=== PATIENT | female | born 1995 | race Caucasian/White ===

== ENCOUNTER 2017-09-16 16:00 | Observation (INO) | payer MEDICAID ==
--- NOTE | 2017-09-16 19:51 | PDGENHP ---
History and Physical History and Physical: CARE: [facility] HPI: Patient is a [id number] with IUP@ 39-3wks (6) that presents to L&D with complaints of decreased movement x 1 day. She states she had some movement yesterday but denies any regular movements today, states she did feel movement x1 this morning. She denies any contractions, LOF, VB. She EDC:09/20/17 which is based on Ultrasound at 6 weeks. Her is complicated by: h/o tobacco use (none now), h/o HSV 1, h/o anxiety/bulemia, h/o pyelo x2 (none in ), BMI 15 Review of Systems: Constitutional: Denies any fever, chills, or fatigue HEENT: denies any visual changes, difficulty swallowing, hearing loss Cardiovascular: Denies any chest pain, palpitations, leg swelling Respiratory: denies any cough, wheezing, or shortness of breathe GI: Denies any nausea, vomiting, diarrhea, constipation : denies any dysuria, urgency, frequency, vaginal bleeding Musculoskeletal: denies any muscle or bone pain Skin: denies any rashes Neuro: denies any headache, seizures, lightheadedness, dizziness, or loss of consciousness Psychiatric: denies any depression, anxiety, or SI/HI thoughts HISTORY: Previous OB history: G1 Past medical history: h/o bulemia/anxiety Past surgical history: esophageal polyps removed x2, oral surgery Medications: PNV Allergies (list reaction): NKDA LABS: Rh: A pos ABS: Neg Rubella: Immune HbsAg: NR HIV: NR VDRL: NR 1hr: 100 GC: Neg Chlamydia: Neg Pap: Normal GBS: negative BMI: (prepreg) 15 PHYSICAL EXAM: Constitutional: WN, A&Ox3 HEENT: normocephalic atraumatic, supple Heart: RRR, no murmur Chest: CTA-B Abdomen: Soft, nontender, gravid SVE: deferred Extremities: no edema, negative homans sign Neuro: grossly normal Psych: normal affect assessment: Reassuring FHTs, cat 1 Contractions: toco q none BSUS done: HOLLEY 7cm Assessment: 1) [id number] with IUP@ 39-3wks (6) 2) Decreased FM- now resolved, baby active currently 3) GBS negative 4) Cat 1 FHR tracing 5) HOLLEY 7cm 6) no evidence of labor Plan: 1) d/c home 2) PO hydrate 3) FKC and labor prec discussed 4) f/u in office Monday 09/18 for visit/HOLLEY
== END 2017-09-16 17:45 | disposition home or self-care (01) ==
LOC: FLD 16:00
PROVIDERS: ADMIT Advanced Practice Midwife; ATTEND Advanced Practice Midwife
DX: O36.8130 Decreased fetal movements, third trimester, not applicable or unspecified (principal); Z3A.39 39 weeks gestation of pregnancy
CPT/HCPCS: G0378

== ENCOUNTER 2017-09-23 14:00 | Inpatient (IN) | payer MEDICAID ==
[2017-09-23] MEDS ORDERED: LR 1,000 ML IV PRN (14:42)
[2017-09-23] MEDS ORDERED: EPSOM SALT 454 GM TP PRN (14:42)
[2017-09-23] MEDS ORDERED: TERBUTALINE SULFATE 1 MG/ML VIAL IV PRN (14:42)
[2017-09-23] MEDS ORDERED: LIDOCAINE 1% 300 MG/30 ML SDV SC PRN (14:42)
[2017-09-23] MEDS ORDERED: MISOPROSTOL 200 MCG TAB PO PRN (14:42)
[2017-09-23] MEDS ORDERED: OLIVE OIL 118 ML BTL MISC PRN (14:42)
[2017-09-23] MEDS ORDERED: AMMONIA AROMATIC 1 EACH AMP IH PRN (14:42)
--- NOTE | 2017-09-23 14:51 | PDGENHP ---
History and Physical History and Physical: CARE: [facility] HPI: Patient is a 22 yo G 1 P 0 at 40.3 weeks ega who presents to L&D with painful contractions that started early this AM. They are currently 4 minutes apart and she is breathing through them. She denies LOF and VB. Baby has been active. EDC: 09/20/2017 which is based on LMP: 12/13/16 which is known and consistent with Ultrasound at 6 weeks. Her is complicated by: - h/o bipolar disorder/bulimia/anxiety - stable and not currently treated, was treated during teen years [age]. (had 50 pound weight gain with ) - former smoker - 1 PPD - stopped with pos test - h/o pyelo X2 that required hospitalization Review of Systems: Constitutional: Denies any fever, chills, or fatigue HEENT: denies any visual changes, difficulty swallowing, hearing loss Cardiovascular: Denies any chest pain, palpitations, leg swelling Respiratory: denies any cough, wheezing, or shortness of breathe GI: Denies any nausea, vomiting, diarrhea, constipation : denies any dysuria, urgency, frequency, vaginal bleeding Musculoskeletal: denies any muscle or bone pain Skin: denies any rashes Neuro: denies any headache, seizures, lightheadedness, dizziness, or loss of consciousness Psychiatric: denies any depression, anxiety, or SI/HI thoughts HISTORY: Previous OB history: none Past medical history: h/o hsv 1(cold sores), h/o bipolar/anxiety/bulimia - currently stable (was treated ages [age]), h/o pyelo X2 (was hospitalized) Past surgical history: h/o esophageal polyps secondary to bulimia - Medications: PNV Allergies (list reaction): NKDA LABS: Rh: A pos ABS: Neg Rubella: Immune HbsAg: NR HIV: NR VDRL: NR 1hr: 100 GC: Neg Chlamydia: Neg Pap: N/A GBS: neg PHYSICAL EXAM: Constitutional: WN, A&Ox3 HEENT: normocephalic atraumatic, supple Heart: RRR, no murmur Chest: CTA-B Abdomen: Soft, nontender, gravid SVE: 5/90/0 Extremities: trace edema, negative rodrigue's sign Neuro: grossly normal Psych: normal affect assessment: Reassuring FHTs, baseline 130s +accels, no decels, moderate variability Contractions: toco q 3-4 Assessment: 1) 22 yo G 1 P 0 with IUP@ 40.3 weeks EGA 2) spontaneous labor 3) GBS neg 4) Cat 1 FHR tracing Plan: 1) Admit to L&D 2) Intermittent monitoring per protocol after reactive NST 3) Diet as tolerated 4) Pain management PRN as patient desires - is planning unmediated at this time. 5) Anticipate
--- NOTE | 2017-09-23 15:41 | PDMN ---
Medical Necessity Medical necessity: C/M review: est. > 2 MN LOS for 40.3 weeks intrauterine with spontaneous labor for expectant management of labor and delivery , anticipated per H/P.
[2017-09-23 15:51] LABS: PLATELET COUNT 212 10^3/uL (150-400)
[2017-09-23] MEDS ORDERED: LIDOCAINE 1% 300 MG/30 ML SDV ONE (16:10)
[2017-09-23] MEDS ORDERED: TERBUTALINE SULFATE 1 MG/ML VIAL ONE (16:11)
[2017-09-23] MEDS ORDERED: MISOPROSTOL 200 MCG TAB ONE (16:11)
[2017-09-23] MEDS ORDERED: AMMONIA AROMATIC 1 EACH AMP IH ONE (16:11)
[2017-09-23] MEDS ORDERED: OXYTOCIN 10 UNIT/ML VIAL ONE (16:11)
[2017-09-23] MEDS ORDERED: OLIVE OIL 118 ML BTL ONE (16:11)
[2017-09-23] MEDS ORDERED: OXYTOCIN/NORMAL SALINE 20 UNIT/1,000 ML BAG IV ONE (16:12)
[2017-09-23] MEDS ORDERED: fentaNYL 200 MCG, BUPIVACAINE 0.5% 20 ML in NS 100 ML EP SCH (20:00)
[2017-09-23] MEDS ORDERED: ONDANSETRON 4 MG/2 ML VIAL IVP PRN (20:33)
[2017-09-23] MEDS ORDERED: PHENYLEPHRINE HCL 100 MCG/ML SYR IVP PRN (20:33)
[2017-09-23] MEDS ORDERED: NALOXONE HCL 0.4 MG/ML INJ IVP PRN (20:33)
--- NOTE | 2017-09-23 20:37 | PREANESOB ---
Obstetric Pre-Anesthesia Info - General Info NPO Start Time: 15:00 : 1 Para: 0 SALAZAR: 09/20/17 Gestational Age: 40 week(s) and 3 day(s) - Info Status: Full Term Monitors: External FHR Pattern: Reassuring - Labor Status Cervical Dilation per last OB SVE: 8 PIH: No Indications for Labor Analgesia: Pain Control Anesthesia ROS: anxiety h/o eating disorders R hip pain during Allergies/Adverse Reactions: Allergy/AdvReac Type Severity Reaction Status Date / Time No Known Allergies Allergy Verified 04/14/13 13:24 Home Medications: Medication Instructions Recorded Ondansetron Odt [Zofran Odt] 4 mg PO Q4PRN PRN #8 tab 08/08/15 Visit Medications: Generic Name Dose Route Start Last Admin Trade Name Freq PRN Reason Stop Dose Admin Ammonia (Aromatic Spirit) 1 each 09/23/17 14:42 Ammonia Aromatic IH 10/03/17 14:41 ONCE PRN Fainting Lactated Ringer's 1,000 mls @ 0 mls/hr 09/23/17 14:42 Lr IV 09/24/17 14:41 PRN PRN SEE PROTOCOL CONDITIONS Protocol Per Protocol Fentanyl 200 mcg/ Bupivacaine 100 mls @ 0 mls/hr 09/23/17 20:00 HCl 20 ml/ Sodium Chloride EP 10/03/17 19:59 CONT VASU Protocol As Directed Ibuprofen 600 mg 09/23/17 14:42 Motrin PO 03/22/18 14:41 Q6HRS PRN post , inflammation Lidocaine HCl 300 mg 09/23/17 14:42 Lidocaine Hcl 1% SC 03/22/18 14:41 ONCE PRN episiotomy Magnesium Sulfate 454 gm 09/23/17 14:42 Epsom Salt TP 03/22/18 14:41 Q1H PRN perineal discomfort Misoprostol 800 - 1,000 mcg 09/23/17 14:42 Cytotec PO 03/22/18 14:41 ONCE PRN Vaginal Atony/Bleeding [place] Oil 118 ml 09/23/17 14:42 Sweet Oil MISC 03/22/18 14:41 ONCE PRN perineal massage Terbutaline Sulfate 0.25 mg 09/23/17 14:42 Brethine IV 03/22/18 14:41 ONCE PRN Tachysystole Discontinued Medications Generic Name Dose Route Start Last Admin Trade Name Yaron PRN Reason Stop Dose Admin Ammonia (Aromatic Spirit) Confirm 09/23/17 16:11 Ammonia Aromatic Administered 09/23/17 16:12 Dose 1 each IH .STK-MED ONE Lidocaine HCl Confirm 09/23/17 16:10 Lidocaine Hcl 1% Administered 09/23/17 16:11 Dose 300 mg .ROUTE .STK-MED ONE Misoprostol Confirm 09/23/17 16:11 Cytotec Administered 09/23/17 16:12 Dose 1,000 mcg .ROUTE .STK-MED ONE [place] Oil Confirm 09/23/17 16:11 Sweet Oil Administered 09/23/17 16:12 Dose 118 ml .ROUTE .STK-MED ONE Oxytocin Confirm 09/23/17 16:11 Pitocin Administered 09/23/17 16:12 Dose 40 unit .ROUTE .STK-MED ONE Oxytocin/Sodium Chloride Confirm 09/23/17 16:12 Pitocin 20 Units/Ns (Premix) Administered 09/23/17 16:13 Dose 20 unit IV .STK-MED ONE Terbutaline Sulfate Confirm 09/23/17 16:11 Brethine Administered 09/23/17 16:12 Dose 1 mg .ROUTE .STK-MED ONE - Anesthesia History Response to Local Anesthetics: Normal Anesthesia & Operative History: No Prior Problems Family Anesthesia History: Negative - Vital Signs Latest Vital Signs (Nursing): See RN flowsheet for vital signs Height/Weight (Nursing): Height 175.26 cm Weight 74.843 kg - Focused Exam Neck exam: FROM Mallampati Score: Class 2 Pulmonary: clear to auscultation Cardiovascular: regular rate and rhythym Labs: 09/23/17 15:25 Patient ABO/Rh A POSITIVE 09/23/17 15:25 - Plan Consent Signed and on Chart: Yes Urgent/Emergent Case: Angie rodriguez completed preop but documented later for safe timely pt care
--- NOTE | 2017-09-23 20:53 | OBPROG ---
Labor Progress Note Assessment/Plan: Assessment: 22 y/o at 40 3/7 wks in active labor Plan: s/p epidural, pt is comfortable AROM - mod amount, light meconium noted FHTs - Cat II tracing Will have pt labor down Anticipate 09/23/17 20:59 Subjective/Intrapartum Course: 09/23/17 20:58 Pt is s/p epidural, pt is comfortable. Objective: 09/23/17 15:25 Patient ABO/Rh A POSITIVE 09/23/17 15:25 - SVE Dilation (cm): 9 (Ant lip) Effacement (%): 100 Station: +1 Membranes: AROM Amniotic Fluid Color: Meconium Stained (thin) - Contraction Pattern Assessment Current Contraction Pattern: Regular - FHR Assessment Awan FHR (bpm): 140 FHR Pattern Variability: Moderate FHR Category: 2 (intermittent variable decels) - Procedures Non-surgical Procedures: Amniotomy Oxytocin Orders Assessment - Pre-Induction/Augmentation Assessment Gestational Age: 40 week(s) and 3 day(s) ICD10 Worksheet Patient Problems: Problems Problem Status Onset Post term over 40 weeks Acute - ICD10 Problem Qualifiers (1) Post term over 40 weeks
[2017-09-23] MEDS ORDERED: fentaNYL 2MCG/ML/BUP 0.1% RTU 100 ML EP SCH (21:00)
[2017-09-23] MEDS ORDERED: LR 500 ML IV SCH (21:00)
[2017-09-24] MEDS ORDERED: HYDROCORTISONE 0.5% CREAM TP PRN (01:46)
[2017-09-24] MEDS ORDERED: ACETAMINOPHEN 325 MG TAB PO PRN (01:46)
[2017-09-24] MEDS ORDERED: HYDROCODONE/APAP 5/325 TAB PO PRN (01:46)
[2017-09-24] MEDS ORDERED: SIMETHICONE 80 MG TAB CHEW PO PRN (01:46)
--- NOTE | 2017-09-24 01:54 | OBDEL ---
Info Type: Vaginal Presentation at Delivery: Vertex L&D Analgesia/Anesthesia Type: Epidural GBS+: No - Hospital Course Intrapartum: 09/23/17 20:58 Pt is s/p epidural, pt is comfortable. Indications for Delivery: Spontaneous Labor Vaginal Delivery - Delivery Provider Delivery Physician/CNM: Nannette Silva Proctoring Provider: Meggan Lawrence - Labor and Delivery Onset of Contractions Date: 09/23/17 Onset of Contractions Time: 05:30 Onset of Contractions Type: Spontaneous Rupture of Membranes Date: 09/23/17 Rupture of Membranes Time: 20:45 Rupture of Membranes Type: Artificial Amniotic Fluid Color: Meconium Stained (thin) Dilation Complete Date: 09/23/17 Dilation Complete Time: 21:30 Placenta Delivery Date: 09/23/17 Placenta Delivery Time: 01:05 Total Hours of Labor: -4 Non-surgical Procedures: Amniotomy Laceration: 1st Degree Repair: 3-0 Vaginal Sponge Count Correct: Yes Vaginal Needle Count Correct: Yes Vaginal Sweep Performed: No EBL: 200 Delivery Events: Nuchal Cord (X2) Data SALAZAR: 09/20/17 Gestational Age: 40 week(s) and 4 day(s) Awan Delivery Date: 09/23/17 Delivery Time: 01:02 Sex of : Male Score (1 Min): 8 Score (5 Min): 9 ICD10 Worksheet Patient Problems: Problems Problem Status Onset Post term over 40 weeks Acute Vaginal delivery Acute - ICD10 Problem Qualifiers (1) Vaginal delivery
[2017-09-24] MEDS: IBUPROFEN 600 MG TAB PO PRN ×4 (05:39→23:11)
--- NOTE | 2017-09-24 10:03 | POSTANESTH ---
Post Anesthetic Evaluation Cardiovascular Status: Normal, Stable, Similar to Pre-Op Cond Respiratory Status: Normal, Stable, Similar to Pre-op Cond. Level of Consciousness/Mental Status: Can Participate in Eval, Alert and Oriented Pain Control: Adequate, Prn Tx Ordered Nausea/Vomiting Control: Adequate, Prn Tx Ordered Complications Possibly Related to Anesthesia: None Noted Notes: POD 1 s/p w/ PCEA. Pain control rated as good. Block has resolved completely, able to ambulate. Back site c/d/i, no e/e/e. Denies n/v/REINOSO. No apparent ill effects from anesthesia.
[2017-09-24] MEDS: DOCUSATE SODIUM 100 MG CAP PO PRN ×2 (11:30→22:07)
--- NOTE | 2017-09-24 11:40 | OBPP ---
Progress Note Assessment/Plan: Assessment: 22 y/o PPD #0 s/p doing well. Plan: Pt is feeling dizzy this am. We will check a Hct now and add iron supplement. support and routine PPC. 09/24/17 11:39 Subjective/ Course: 09/24/17 11:36 Pt is feeling some dizziness when she ambulates today. She is tolerating reg diet and voiding without difficulty. She has min lochia. They are working on breast feeding and baby has a good latch. Objective: 09/23/17 15:25 Patient ABO/Rh A POSITIVE 09/23/17 15:25 Temp Pulse Resp BP Pulse Ox 36.8 C 79 16 102/56 L 95 09/24/17 08:20 09/24/17 08:20 09/24/17 08:20 09/24/17 08:20 09/24/17 08:20 Uterine Position/Fundal Height: Umbilicus -2 Uterine Tone: Firm Physical Exam - Physical Exam General Appearance: alert, no apparent distress Neck: non-tender, full range of motion, supple Respiratory: chest non-tender, lungs clear, normal breath sounds Cardiac/Chest: regular rate, rhythm Abdomen: normal bowel sounds Extremities: swelling (no), Brittany's sign (neg)
[2017-09-24] MEDS: IRON POLYSAC/IRON HEME 28 MG TAB PO SCH (17:19)
[2017-09-25] MEDS: IBUPROFEN 600 MG TAB PO PRN ×2 (05:08→17:36)
[2017-09-25] MEDS: IRON POLYSAC/IRON HEME 28 MG TAB PO SCH (10:29)
[2017-09-25] MEDS: DOCUSATE SODIUM 100 MG CAP PO PRN (10:29)
--- NOTE | 2017-09-25 15:35 | OBPP ---
Progress Note Assessment/Plan: Assessment:22 PPD#1 s/p - doing well. Plan: Continue routine pp cares. Anticipate dc home tomorrow. Laurie Ren MD, FACOG 09/25/17 15:34 Subjective/ Course: 09/24/17 11:36 Pt is feeling some dizziness when she ambulates today. She is tolerating reg diet and voiding without difficulty. She has min lochia. They are working on breast feeding and baby has a good latch. 09/25/17 15:33 Feeling well today. going well. Ambulating, voiding and liana reg diet without issues. Mod lochia. Baby to get circumcised today. Objective: 09/24/17 12:30 Patient ABO/Rh A POSITIVE 09/23/17 15:25 Temp Pulse Resp BP Pulse Ox 36.7 C 70 16 100/60 95 09/25/17 10:31 09/25/17 10:31 09/25/17 10:31 09/25/17 10:31 09/24/17 19:49 gen - pleasant, NAD CV -RRR chest-CTAB abd - soft, + BS, fundus firm u-2 ext - calves NT, trace LE edema Uterine Position/Fundal Height: Umbilicus -2 Uterine Tone: Firm
[2017-09-26] MEDS: IBUPROFEN 600 MG TAB PO PRN ×2 (05:17→12:56)
[2017-09-26] MEDS: DOCUSATE SODIUM 100 MG CAP PO PRN (05:17)
[2017-09-26 08:29] VITALS: BP 108/61
--- NOTE | 2017-09-26 09:48 | OBGCSDC ---
General Delivery Information - General Info : 1 Para: 1 Abortions: 0 Type: Vaginal L&D Analgesia/Anesthesia Type: Epidural Admission Date: 09/23/17 Labs: Patient ABO/Rh A POSITIVE 09/23/17 15:25 Hct 33.6 % (38.0-47.0) L 09/24/17 12:30 - Hospital Course Intrapartum: 09/23/17 20:58 Pt is s/p epidural, pt is comfortable. : 09/24/17 11:36 Pt is feeling some dizziness when she ambulates today. She is tolerating reg diet and voiding without difficulty. She has min lochia. They are working on breast feeding and baby has a good latch. 09/25/17 15:33 Feeling well today. going well. Ambulating, voiding and liana reg diet without issues. Mod lochia. Baby to get circumcised today. 09/26/17 09:46 S) Pt doing well, reports min pain and bleeding. she is ambulating and voiding without difficulty. She is . She desires discharge home today. O) VSS, afebrile constitutional: WNWF, A&Ox3 HEENT: normocephalic, atraumatic, supple Heart: RRR, No murmur Chest: CTA-B Abdomen: Soft, nontender Uterus: Firm at U-2 Lochia: Minimal rubra Perineum: Intact, healing well Extremities: Trace edema, and negative Brittany's sign Neuro: Grossly normal A) 22 year-old G P S/P PPD#2 P) Discharge home today Continue Pelvic rest x6wks Discussed danger signs (infection, preeclampsia, depression, heavy bleeding, etc) RTO in 4/6 weeks 09/26/17 09:47 Vaginal - Delivery Provider Delivery Physician/CNM: Nannette Silva - Diagnosis Labor: Spontaneous Rupture of Membranes Type: Artificial Amniotic Fluid Color: Meconium Stained (thin) Laceration: 1st Degree Repair: 3-0 Delivery Events: Nuchal Cord (X2) - Procedures Non-surgical Procedures: Amniotomy - Delivery Non-surgical Procedures: Amniotomy EBL: 200 [place] Data SALAZAR: 09/20/17 Gestational Age: 40 week(s) and 6 day(s) Awan Delivery Date: 09/24/17 Delivery Time: 01:02 Sex of : Male Score (1 Min): 8 Score (5 Min): 9 Discharge Information - Discharge Information Condition: Good Instruction/Follow Up: Four Weeks, Six Weeks
[2017-09-26] MEDS: IRON POLYSAC/IRON HEME 28 MG TAB PO SCH (10:27)
== END 2017-09-26 14:00 | disposition home or self-care (01) | DRG 560 ==
LOC: EEVIPCON 14:00 → FLD 14:00 → FOB 09-24 03:56
PROVIDERS: ADMIT Advanced Practice Midwife; ATTEND Obstetrics & Gynecology
PROC: 0WQNXZZ Repair Female Perineum, External Approach (ICD-10-PCS; principal; 2017-09-23)
PROC: 10E0XZZ Delivery of Products of Conception, External Approach (ICD-10-PCS; principal; 2017-09-23)
PROC: 10907ZC Drainage of Amniotic Fluid, Therapeutic from Products of Conception, Via Natural or Artificial Opening (ICD-10-PCS; 2017-09-23)
DX: O70.0 First degree perineal laceration during delivery (principal); O69.81X0 Labor and delivery complicated by cord around neck, without compression, not applicable or unspecified; O77.0 Labor and delivery complicated by meconium in amniotic fluid; Z3A.40 40 weeks gestation of pregnancy; Z37.0 Single live birth; Z87.891 Personal history of nicotine dependence
CPT/HCPCS: J2590; J3010; J3105